=== PATIENT | female | born 1945 | race Caucasian/White ===

== ENCOUNTER 2023-01-10 13:25 | Inpatient (IN) | payer MEDICARE ==
[2023-01-10] VITALS (36 sets, daily range): BP systolic 126–207; BP diastolic 65–146
[~2023-01-10] VITALS: Ht 154.9 cm; Wt 92.0 kg
[2023-01-10 14:00] LABS: BASO% 0.2 % (0-3); HEMATOCRIT 35.5 % (37.0-47.0); HEMOGLOBIN 13.2 g/dl (12.0-16.0); IMMATURE GRANULOCYTES 0.2 % (0.0-5.0); LYMPH% 14.9 % (15-41); MEAN CELL VOLUME 82.8 fL CALC (80.0-100.0); MEAN CORPUSCULAR HGB 30.8 pG CALC (26.0-32.0); MEAN CORPUSCULAR HGB CONC 37.2 g/dL CAL (32.0-36.0); MONO% 9.3 % (2-13); NEUT# 8.72 thou/uL (2.00-7.15); NEUT% 75.4 % (42-76); RED BLOOD COUNT 4.29 mill/uL (4.20-5.60); RED CELL DISTRI WIDTH 11.7 % (11.5-15.5)
[2023-01-10 14:21] LABS: INTERNATIONAL NORMALIZED RATIO 1.1 RATIO (0.7-1.3); PROTHROMBIN TIME 10.6 SECONDS (9.0-12.5)
[2023-01-10 14:22] LABS: ALBUMIN 4.4 g/dL (3.2-5.0); ALKALINE PHOSPHATASE 57 u/l (38-126); BILIRUBIN, TOTAL 0.7 mg/dL (0.02-1.3); BUN 15 mg/dL (8-23); BUN/CREATININE RATIO 21 (12-20 (CALC)); CARBON DIOXIDE 26 mmol/l (22-30); CHLORIDE 76 mmol/l (95-108); CREATININE 0.7 mg/dL (0.5-1.0); GFR FOR AFR.AMER. > 60 ML/MIN (>=60 (CALC)); GFR OTHER RACES > 60 ML/MIN (>=60 (CALC)); LIPASE 50 u/l (23-300); SGOT/AST 72 u/l (9-36); TOTAL PROTEIN 7.4 g/dL (6.3-8.2)
[2023-01-10 14:34] LABS: ANION GAP 14 (6-22 (CALC)); SODIUM 113 mmol/l (137-146)
[2023-01-10] MEDS ORDERED: LISINOP/HCTZ1 TA1 PO (15:36)
[2023-01-10] MEDS ORDERED: NEURONTIN800 MG PO ×2 (15:37→15:40)
[2023-01-10] MEDS ORDERED: COREG12.5 MG PO (15:37)
[2023-01-10] MEDS ORDERED: SIMVASTATIN40 MG PO (15:41)
[2023-01-10] MEDS ORDERED: ROPINIROLE0.5 MG PO (16:03)
[2023-01-10] MEDS ORDERED: PERCOCET 5/321 COMBO PO (16:04)
[2023-01-10 16:25] LABS: URINE BILIRUBIN - DIPSTICK Negative (NEGATIVE); URINE BLOOD DIPSTICK Trace-intact (NEGATIVE); URINE GLUCOSE - DIPSTICK Negative (NEGATIVE); URINE KETONE 15 mg/dL (NEGATIVE); URINE LEUK ESTERASE Negative (NEGATIVE); URINE NITRITE - DIPSTICK Negative (Negative); URINE PH 6.5 (4.5-8.0); URINE PROTEIN - DIPSTICK 30 mg/dL (NEG-TRACE); URINE SPECIFIC GRAVITY 1.015; URINE UROBILINOGEN - DIPSTICK 0.2 E.U./dL (0.2)
[2023-01-10 16:26] LABS: URINE COLOR Yellow
[2023-01-10 16:27] LABS: URINE RBC 0-2 RBC/hpf (0-5); URINE SQUAMOUS EPITHELIAL CELL FEW EPI/hpf (0-FEW); URINE WBC 0-2 WBC/hpf (0-5)
[2023-01-10 18:40] LABS: BUN 14 mg/dL (8-23); BUN/CREATININE RATIO 19 (12-20 (CALC)); CARBON DIOXIDE 23 mmol/l (22-30); CHLORIDE 82 mmol/l (95-108); CREATININE 0.7 mg/dL (0.5-1.0); GFR FOR AFR.AMER. > 60 ML/MIN (>=60 (CALC)); GFR OTHER RACES > 60 ML/MIN (>=60 (CALC)); MAGNESIUM 1.2 mg/dL (1.6-2.3)
[2023-01-10 18:43] LABS: ANION GAP 12 (6-22 (CALC)); SODIUM 114 mmol/l (137-146)
[2023-01-11] VITALS (23 sets, daily range): BP systolic 78–162; BP diastolic 36–83
[2023-01-11 01:13] LABS: BUN 13 mg/dL (8-23); BUN/CREATININE RATIO 18 (12-20 (CALC)); CARBON DIOXIDE 21 mmol/l (22-30); CHLORIDE 88 mmol/l (95-108); CREATININE 0.7 mg/dL (0.5-1.0); GFR FOR AFR.AMER. > 60 ML/MIN (>=60 (CALC)); GFR OTHER RACES > 60 ML/MIN (>=60 (CALC)); POTASSIUM 3.4 mmol/l (3.5-5.1)
[2023-01-11 01:19] LABS: ANION GAP 12 (6-22 (CALC)); SODIUM 118 mmol/l (137-146)
[2023-01-11 06:12] LABS: BASO% 0.1 % (0-3); EOS% 0.1 % (0-8); HEMATOCRIT 30.9 % (37.0-47.0); HEMOGLOBIN 11.3 g/dl (12.0-16.0); IMMATURE GRANULOCYTES 0.1 % (0.0-5.0); LYMPH% 21.9 % (15-41); MEAN CELL VOLUME 85.4 fL CALC (80.0-100.0); MEAN CORPUSCULAR HGB 31.2 pG CALC (26.0-32.0); MEAN CORPUSCULAR HGB CONC 36.6 g/dL CAL (32.0-36.0); MONO% 14.1 % (2-13); NEUT# 4.98 thou/uL (2.00-7.15); NEUT% 63.7 % (42-76); RED BLOOD COUNT 3.62 mill/uL (4.20-5.60); RED CELL DISTRI WIDTH 11.9 % (11.5-15.5)
[2023-01-11 06:46] LABS: ALKALINE PHOSPHATASE 49 u/l (38-126); BILIRUBIN, TOTAL 0.6 mg/dL (0.02-1.3); BUN 13 mg/dL (8-23); BUN/CREATININE RATIO 17 (12-20 (CALC)); CALCULATED LDLCHOLESTEROL 37 mg/dL (62-129 (CALC)); CHLORIDE 90 mmol/l (95-108); CHOLESTEROL HDL RATIO 3.3 (<4.4 (CALC)); CREATININE 0.8 mg/dL (0.5-1.0); GFR FOR AFR.AMER. > 60 ML/MIN (>=60 (CALC)); GFR OTHER RACES > 60 ML/MIN (>=60 (CALC)); HDL CHOLESTEROL 37 mg/dL (39.0-59.0); MAGNESIUM 1.4 mg/dL (1.6-2.3); POTASSIUM 3.3 mmol/l (3.5-5.1); SGOT/AST 60 u/l (9-36); SODIUM 121 mmol/l (137-146); TOTAL CHOLESTEROL 124 mg/dl (0-199); TOTAL TRIGLYCERIDES 248 mg/dl (0-149); VLDL CHOLESTROL 50 mg/dl (0-48 (CALC))
[2023-01-11 06:51] LABS: ALBUMIN 3.3 g/dL (3.2-5.0); ANION GAP 8 (6-22 (CALC)); CARBON DIOXIDE 26 mmol/l (22-30); TOTAL PROTEIN 5.6 g/dL (6.3-8.2)
[2023-01-11 12:46] LABS: ANION GAP 11 (6-22 (CALC)); BUN 13 mg/dL (8-23); BUN/CREATININE RATIO 19 (12-20 (CALC)); CARBON DIOXIDE 25 mmol/l (22-30); CHLORIDE 91 mmol/l (95-108); CREATININE 0.7 mg/dL (0.5-1.0); GFR FOR AFR.AMER. > 60 ML/MIN (>=60 (CALC)); GFR OTHER RACES > 60 ML/MIN (>=60 (CALC)); POTASSIUM 3.7 mmol/l (3.5-5.1); SODIUM 123 mmol/l (137-146)
[2023-01-11 12:56] LABS: ALBUMIN 3.3 g/dL (3.2-5.0)
[2023-01-11 18:36] LABS: ANION GAP 10 (6-22 (CALC)); BUN 13 mg/dL (8-23); BUN/CREATININE RATIO 16 (12-20 (CALC)); CARBON DIOXIDE 25 mmol/l (22-30); CHLORIDE 94 mmol/l (95-108); CREATININE 0.8 mg/dL (0.5-1.0); GFR FOR AFR.AMER. > 60 ML/MIN (>=60 (CALC)); GFR OTHER RACES > 60 ML/MIN (>=60 (CALC)); POTASSIUM 3.5 mmol/l (3.5-5.1); SODIUM 125 mmol/l (137-146)
[2023-01-12] VITALS (20 sets, daily range): BP systolic 104–168; BP diastolic 53–128
[2023-01-12 05:48] LABS: HEMATOCRIT 31.9 % (37.0-47.0); HEMOGLOBIN 11.2 g/dl (12.0-16.0); MEAN CELL VOLUME 88.9 fL CALC (80.0-100.0); MEAN CORPUSCULAR HGB 31.2 pG CALC (26.0-32.0); MEAN CORPUSCULAR HGB CONC 35.1 g/dL CAL (32.0-36.0); RED BLOOD COUNT 3.59 mill/uL (4.20-5.60); RED CELL DISTRI WIDTH 12.3 % (11.5-15.5)
[2023-01-12 05:58] LABS: ALBUMIN 3.1 g/dL (3.2-5.0); BUN 12 mg/dL (8-23); CARBON DIOXIDE 25 mmol/l (22-30); CHLORIDE 101 mmol/l (95-108); CREATININE 0.7 mg/dL (0.5-1.0); GFR FOR AFR.AMER. > 60 ML/MIN (>=60 (CALC)); GFR OTHER RACES > 60 ML/MIN (>=60 (CALC)); POTASSIUM 3.6 mmol/l (3.5-5.1); SODIUM 130 mmol/l (137-146)
[2023-01-12 06:06] LABS: MAGNESIUM 1.9 mg/dL (1.6-2.3)
[2023-01-13] VITALS (12 sets, daily range): BP systolic 156–219; BP diastolic 64–176
[2023-01-13 06:03] LABS: HEMATOCRIT 31.7 % (37.0-47.0); HEMOGLOBIN 11.1 g/dl (12.0-16.0); MEAN CELL VOLUME 90.3 fL CALC (80.0-100.0); MEAN CORPUSCULAR HGB 31.6 pG CALC (26.0-32.0); RED BLOOD COUNT 3.51 mill/uL (4.20-5.60); RED CELL DISTRI WIDTH 12.5 % (11.5-15.5)
[2023-01-13 06:21] LABS: ALBUMIN 3.3 g/dL (3.2-5.0); ALKALINE PHOSPHATASE 55 u/l (38-126); ANION GAP 8 (6-22 (CALC)); BILIRUBIN, TOTAL 0.3 mg/dL (0.02-1.3); BUN 14 mg/dL (8-23); BUN/CREATININE RATIO 19 (12-20 (CALC)); CARBON DIOXIDE 26 mmol/l (22-30); CHLORIDE 102 mmol/l (95-108); CREATININE 0.7 mg/dL (0.5-1.0); GFR FOR AFR.AMER. > 60 ML/MIN (>=60 (CALC)); GFR OTHER RACES > 60 ML/MIN (>=60 (CALC)); MAGNESIUM 2.1 mg/dL (1.6-2.3); POTASSIUM 3.7 mmol/l (3.5-5.1); SGOT/AST 29 u/l (9-36); SODIUM 132 mmol/l (137-146); TOTAL PROTEIN 5.7 g/dL (6.3-8.2)
[2023-01-13] MEDS ORDERED: LISINOPRIL20 M1 PO (10:43)
[2023-01-13] MEDS ORDERED: IRON HIGH-POTE325 MG PO (10:45)
[2023-01-13] MEDS ORDERED: HYDRALAZINE HYD25 MG PO (10:46)
== END 2023-01-13 12:24 | DRG 641 ==
LOC: ED 13:25 → ED-I 14:33 → ED 14:33 → ED-I 16:00 → ED 17:03 → ICU 17:04
PROVIDERS: Internal Medicine Nephrology; Nurse Practitioner; ADMIT Student in an Organized Health Care Education/Training Program; ATTEND Student in an Organized Health Care Education/Training Program
DX: E87.1 Hypo-osmolality and hyponatremia (principal); E87.6 Hypokalemia; I10 Essential (primary) hypertension; E78.5 Hyperlipidemia, unspecified; E86.1 Hypovolemia; R41.3 Other amnesia; T46.4X5A Adverse effect of angiotensin-converting-enzyme inhibitors, initial encounter; T50.2X5A Adverse effect of carbonic-anhydrase inhibitors, benzothiadiazides and other diuretics, initial encounter; E83.42 Hypomagnesemia; D64.9 Anemia, unspecified; G25.81 Restless legs syndrome; Z20.822 Contact with and (suspected) exposure to COVID-19
CPT/HCPCS: J1650